=== PATIENT | female | born 1965 | race Hispanic/Latino ===

== ENCOUNTER → 2017-09-19 | Outpatient (CLI) | payer BC ==
[~2017-09-19] MED LIST: TERB250T4 PO
== END | disposition home or self-care (01) ==
LOC: SHCH 13:18
PROVIDERS: ATTEND Internal Medicine Cardiovascular Disease
DX: R55 Syncope and collapse (principal)
CPT/HCPCS: 93306

== ENCOUNTER 2018-04-21 17:28 | Observation (INO) | payer BC ==
[~2018-04-21] VITALS: Ht 177.8 cm; Wt 81.6 kg
[2018-04-21 18:38] LABS: BASOPHILS % (AUTO) 0.2 % (0.0-5.0); EOSINOPHILS % (AUTO) 0.4 % (0.0-8.0); HEMATOCRIT 43.5 % (36-48); LYMPHOCYTES % (AUTO) 16.6 % (21.0-51.0); MEAN CORPUSCULAR HEMOGLOBIN 30.5 pg (27.0-33.0); MEAN CORPUSCULAR HGB CONC 33.2 g/dL (32.0-36.0); MEAN CORPUSCULAR VOLUME 91.9 fL (79-99); MONOCYTES % (AUTO) 5.5 % (3.0-13.0); NEUTROPHILS % (AUTO) 77.3 % (40.0-77.0); NUCLEATED RED BLOOD CELLS 0.1 % (0.0-0.19); PLATELET COUNT (AUTO) 196 K/uL (130-400); RED BLOOD CELL COUNT(AUTO) 4.73 MIL/uL (4.00-5.50); WHITE BLOOD COUNT (AUTO) 14.9 K/uL (4.8-10.8)
[2018-04-21 18:50] LABS: ALBUMIN 3.4 g/dL (3.5-5.0); BILIRUBIN,DIRECT 0.1 mg/dL (0.0-0.3); BILIRUBIN,TOTAL 0.6 mg/dL (0.2-1.0)
[2018-04-21 19:02] LABS: B-TYPE NATRIURETIC PEPTIDE 20 pg/mL (0-100)
[2018-04-21] MEDS ORDERED: MIDO2.5T PO (19:20)
[2018-04-21] MEDS ORDERED: ONDA4TAB4 PO (19:20)
[2018-04-21] MEDS ORDERED: TYL3 PO (19:20)
[2018-04-21] MEDS ORDERED: PANT40TA25 PO (19:20)
[2018-04-21] MEDS ORDERED: VITA1CAP85 PO (19:20)
[2018-04-21] MEDS ORDERED: TOPI25CA13 PO (19:20)
[2018-04-21] MEDS ORDERED: FERR325T22 PO (19:20)
[2018-04-21] MEDS ORDERED: CHOL100053 PO (19:20)
[2018-04-21] MEDS: SODIUM CHLORIDE 0.9% 1000ML 1,000 ML IV SCH (19:22)
[2018-04-21] MEDS ORDERED: DIPHENHYDRAMINE HCL 25 MG CAPSULE PO PRN (19:30)
[2018-04-21] MEDS ORDERED: CEFTRIAXONE SODIUM 2 GM VIAL IVP SCH (19:30)
[2018-04-21] MEDS ORDERED: LACTULOSE 20 GM/30 ML UDCUP PO PRN (19:30)
[2018-04-21] MEDS ORDERED: LIDOCAINE HCL-MPF 1% 2ML VIAL IVP PRN (19:30)
[2018-04-21] MEDS ORDERED: PROCHLORPERAZINE EDISYLATE 10 MG/2 ML VIAL IV PRN (19:30)
[2018-04-21] MEDS ORDERED: MAG HYDROX/AL HYDROX/SIMETH ES 30 ML SUSP UDCUP PO PRN (19:30)
[2018-04-21] MEDS ORDERED: MORPHINE SULFATE 2 MG/ML 1ML SYG IV PRN (19:30)
[2018-04-21] MEDS ORDERED: ACETAMINOPHEN 325 MG TAB PO PRN ×2 (19:30)
[2018-04-21] MEDS ORDERED: DiphenhydrAMINE HCL 50 MG/ML VIAL IV PRN (19:30)
[2018-04-21] MEDS ORDERED: ACETAMINOPHEN-CODEINE 300/30MG TAB PO PRN ×2 (19:30)
[2018-04-21] MEDS ORDERED: POTASSIUM CHLORIDE 20MEQ/100ML 100 ML IV PRN (19:30)
[2018-04-21 19:46] LABS: AMYLASE 72 U/L (25-115); LIPASE 511 U/L (114-286)
[2018-04-21] MEDS ORDERED: PROCHLORPERAZINE EDISYLATE 10 MG/2 ML VIAL ONE (19:54)
[2018-04-21] MEDS ORDERED: MORPHINE SULFATE 4 MG/1ML SYG ONE (19:55)
[2018-04-21 20:23] LABS: CREATININE 0.9 mg/dL (0.5-1.5); POTASSIUM 4.6 mmol/L (3.5-5.1)
[2018-04-21 21:00] LABS: APPEARANCE,URINE CLOUDY (CLEAR); COLOR,URINE YELLOW (YELLOW); GLUCOSE, URINE (UA) NEGATIVE (NEGATIVE); PROTEIN,URINE TRACE (NEGATIVE)
[2018-04-21 21:01] LABS: BILIRUBIN,URINE SMALL (NEGATIVE); KETONES,URINE NEGATIVE (NEGATIVE); LEUKOCYTE ESTERASE ,URINE SMALL (NEGATIVE); NITRATE,URINE NEGATIVE (NEGATIVE); OCCULT BLOOD,URINE NEGATIVE (NEGATIVE)
[2018-04-21 21:02] LABS: BACTERIA,URINE Few /HPF (None Seen); CALCIUM OXALATE CRYSTALS,UR Many /LPF (None Seen); RBC,URINE None Seen /HPF (0-1); SQUAMOUS EPITHELIAL CELL,UR 0-2 /HPF (0-2); WBC,URINE 26-50 /HPF (0-1)
[2018-04-21] MEDS ORDERED: CEFTRIAXONE SODIUM 1 GM ONE (21:40)
[2018-04-21] MEDS ORDERED: SODIUM CHLORIDE 0.9% 1000ML 1,000 ML IV ONE (21:40)
[2018-04-21 22:50] VITALS: BP 107/64
[2018-04-22] MEDS: MORPHINE SULFATE 4 MG/1ML SYG IV PRN ×3 (00:14→11:01)
[2018-04-22] MEDS: SODIUM CHLORIDE 0.9% 1000ML 1,000 ML IV SCH ×3 (03:22→10:20)
[2018-04-22 04:00] VITALS: BP 107/61
[2018-04-22 04:44] LABS: HEMATOCRIT 38.4 % (36-48); MEAN CORPUSCULAR VOLUME 91.5 fL (79-99); NUCLEATED RED BLOOD CELLS 0.1 % (0.0-0.19); PLATELET COUNT (AUTO) 224 K/uL (130-400); RED CELL DISTRIBUTION WIDTH 13.8 % (11.0-15.5)
[2018-04-22 05:09] LABS: BILIRUBIN,DIRECT 0.1 mg/dL (0.0-0.3); BILIRUBIN,TOTAL 0.3 mg/dL (0.2-1.0); CREATININE 0.8 mg/dL (0.5-1.5); POTASSIUM 3.7 mmol/L (3.5-5.1)
[2018-04-22] MEDS ORDERED: PHARMACY COMMUNICATION MISC SCH ×2 (07:15→09:30)
[2018-04-22 07:40] VITALS: BP 98/58
[2018-04-22] MEDS ORDERED: FAMOTIDINE/PF 20 MG/2 ML VIAL IV SCH (09:00)
[2018-04-22] MEDS ORDERED: MAG HYDROX/AL HYDROX/SIMETH 30 ML, LIDOCAINE HCL 2% VISCOUS 30 ML, DIPHENHYDRAMINE HCL ... PO SCH ×3 (10:00)
[2018-04-22 12:02] VITALS: BP 101/62
[2018-04-22] MEDS ORDERED: PANTOPRAZOLE SODIUM 40 MG TABLET.DR PO SCH (14:30)
[2018-04-22] MEDS ORDERED: AMOXICILLIN/POTASSIUM CLAV 500-125 TABLET PO SCH (14:30)
[2018-04-22] MEDS ORDERED: AMOX-426 PO (14:36)
[2018-04-22] MEDS ORDERED: MELOXICAM 7.5 MG TABLET PO PRN (14:45)
[2018-04-22] MEDS ORDERED: MAGNESIUM HYDROXIDE 30 ML/UDCUP PO PRN (14:45)
[2018-04-22 16:00] VITALS: BP 104/72
== END 2018-04-22 18:55 | disposition home or self-care (01) ==
LOC: EDH 17:28 → 3BH 17:37 → 3DH 18:03
PROVIDERS: ADMIT Internal Medicine; ATTEND Internal Medicine
DX: R10.11 Right upper quadrant pain (principal); D50.9 Iron deficiency anemia, unspecified; E53.8 Deficiency of other specified B group vitamins; E55.9 Vitamin D deficiency, unspecified; F32.9 Major depressive disorder, single episode, unspecified; I95.1 Orthostatic hypotension; J44.9 Chronic obstructive pulmonary disease, unspecified; M85.80 Other specified disorders of bone density and structure, unspecified site; Z82.0 Family history of epilepsy and other diseases of the nervous system; Z82.3 Family history of stroke; Z82.49 Family history of ischemic heart disease and other diseases of the circulatory system; Z82.5 Family history of asthma and other chronic lower respiratory diseases; Z83.3 Family history of diabetes mellitus; Z90.49 Acquired absence of other specified parts of digestive tract; Z90.710 Acquired absence of both cervix and uterus; Z98.84 Bariatric surgery status
CPT/HCPCS: 36415 ×2; 74018; 74176; 74181; 80048 ×2; 80076 ×2; 81001; 82150; 83690; 83880; 85025; 85027; 87088; 96374; 96375; 96376; 99285; A4218; G0378 ×25; J0696; J0780 ×2; J2270 ×4; J3490; J7030 ×2

== ENCOUNTER → 2018-04-30 | Outpatient (CLI) | payer BC ==
[~2018-04-30] MED LIST changes: +AMOX-426 PO; +CHOL100053 PO; +FERR325T22 PO; +MIDO2.5T PO; +PANT40TA25 PO; -TERB250T4 PO; +VITA1CAP85 PO
== END | disposition home or self-care (01) ==
LOC: RAH 12:10
PROVIDERS: ATTEND Internal Medicine
DX: R10.10 Upper abdominal pain, unspecified (principal); K59.00 Constipation, unspecified
CPT/HCPCS: 74018

== ENCOUNTER → 2020-09-11 | Outpatient (CLI) | payer BC ==
[~2020-09-11] MED LIST changes: -PANT40TA25 PO; +PANT40TA54 PO
== END | disposition home or self-care (01) ==
LOC: RAH 13:51
PROVIDERS: ATTEND Internal Medicine
DX: E04.1 Nontoxic single thyroid nodule (principal)
CPT/HCPCS: 76536

== ENCOUNTER → 2021-03-21 | Outpatient (CLI) | payer BC | END | disposition home or self-care (01) | LOC: RAH 10:58 | PROVIDERS: ATTEND Internal Medicine Endocrinology, Diabetes & Metabolism | DX: E04.2 Nontoxic multinodular goiter (principal) | CPT/HCPCS: 76536 ==

== ENCOUNTER → 2022-06-17 | Outpatient (CLI) | payer OTHER | END | disposition home or self-care (01) | LOC: RAH 09:04 | PROVIDERS: ATTEND Family Medicine | DX: M75.112 Incomplete rotator cuff tear or rupture of left shoulder, not specified as traumatic (principal); M75.40 Impingement syndrome of unspecified shoulder; M75.122 Complete rotator cuff tear or rupture of left shoulder, not specified as traumatic; M75.42 Impingement syndrome of left shoulder | CPT/HCPCS: 73221 ==

== ENCOUNTER → 2023-02-03 | Outpatient (CLI) | payer OTHER ==
[~2023-02-03] MED LIST changes: +ERGO500093 PO; +HYDR-4060 PO; +SEMA0.258 SQ; +VITAMIN B12 IM
== END | disposition home or self-care (01) ==
LOC: RAH 08:03
PROVIDERS: ATTEND Internal Medicine
DX: K76.0 Fatty (change of) liver, not elsewhere classified (principal); R94.5 Abnormal results of liver function studies; N28.1 Cyst of kidney, acquired; Z90.49 Acquired absence of other specified parts of digestive tract
CPT/HCPCS: 76705

== ENCOUNTER 2023-02-07 08:40 | Day surgery (SDC) | payer OTHER ==
[2023-02-05 14:54] LABS: BASOPHILS % (AUTO) 1.2 % (0.0-5.0); EOSINOPHILS % (AUTO) 1.3 % (0.0-8.0); HEMATOCRIT 38.4 % (36-48); LYMPHOCYTES % (AUTO) 56.3 % (21.0-51.0); MEAN CORPUSCULAR HEMOGLOBIN 27.3 pg (27.0-33.0); MEAN CORPUSCULAR HGB CONC 31.5 g/dL (32.0-36.0); MEAN CORPUSCULAR VOLUME 86.5 fL (79-99); MONOCYTES % (AUTO) 6.8 % (3.0-13.0); NEUTROPHILS % (AUTO) 34.2 % (40.0-77.0); PLATELET COUNT (AUTO) 279 K/uL (130-400); RED BLOOD CELL COUNT(AUTO) 4.44 MIL/uL (4.00-5.50); RED CELL DISTRIBUTION WIDTH 15.1 % (11.0-15.5); WHITE BLOOD COUNT (AUTO) 8.9 K/uL (4.8-10.8)
[2023-02-05 15:04] LABS: INR 0.97 (0.85-1.15); PROTHROMBIN TIME 11.3 SEC (9.6-11.6)
[2023-02-05 15:06] LABS: ALBUMIN 3.8 g/dL (3.5-5.0); CARBON DIOXIDE 28 mmol/L (21-32); CHLORIDE 104 mmol/L (101-111); CREATININE 0.8 mg/dL (0.5-1.5); GLOMERULAR FILTR. RATE CALC 85 mL/min (>90); GLUCOSE,RANDOM 86 mg/dL (70-105); PARTIAL THROMBOPLASTIN TIME 26.5 SEC (26.3-35.5); POTASSIUM 3.9 mmol/L (3.5-5.1); SODIUM SERUM 141 mmol/L (136-145); UREA NITROGEN, BLOOD 5 mg/dL (7-18)
[2023-02-05 15:07] LABS: CRP QUANTITATIVE < 2.00 mg/L (0.00-9.0)
[2023-02-05 15:27] VITALS: BP 121/59
[~2023-02-07] VITALS: Ht 167.6 cm; Wt 89.0 kg
[2023-02-07] VITALS (16 sets, daily range): BP systolic 104–144; BP diastolic 56–78
[~2023-02-07 08:40] MED LIST changes: -AMOX-426 PO; -CHOL100053 PO; -FERR325T22 PO; -HYDR-4060 PO; -MIDO2.5T PO; -PANT40TA54 PO; -VITA1CAP85 PO
[2023-02-07] MEDS ORDERED: CEFAZOLIN SODIUM 2 GM VIAL ONE (09:15)
[2023-02-07] MEDS ORDERED: 0.9%NACL 1000ML 1,000 ML IV ONE (09:15)
[2023-02-07] MEDS ORDERED: GLYCOPYRROLATE 1 MG/5 ML SYRINGE ONE (12:20)
[2023-02-07] MEDS ORDERED: SUCCINYLCHOLINE CHLORIDE 20 MG/ML 10 ML VIAL ONE (12:20)
[2023-02-07] MEDS ORDERED: LIDOCAINE PF 100MG/5ML (2%) SYRINGE 5ML ONE (12:20)
[2023-02-07] MEDS ORDERED: FENTANYL CITRATE PF 50 MCG/1 ML 2ML VIAL ONE (12:20)
[2023-02-07] MEDS ORDERED: ONDANSETRON 4MG INJ ONE (12:20)
[2023-02-07] MEDS ORDERED: DEXAMETHASONE SOD PHOSPHATE 10MG/ML 1ML VIAL ONE ×2 (12:20→15:49)
[2023-02-07] MEDS ORDERED: MIDAZOLAM HCL 1 MG/ML 2ML VIAL ONE (12:21)
[2023-02-07] MEDS ORDERED: PROPOFOL 10 MG/ML 20ML VIAL IV ONE (12:21)
[2023-02-07] MEDS ORDERED: NEOSTIGMINE 5MG/5ML SYR IV ONE (12:21)
[2023-02-07] MEDS ORDERED: ROCURONIUM 10MG/1ML SYR 10 MG/ML ML ONE (12:21)
[2023-02-07] MEDS ORDERED: ROPIVACAINE 0.5% 5MG/ML 30ML IJ ONE (12:31)
[2023-02-07] MEDS ORDERED: EPINEPHRINE PF 1MG (1:1,000) 1 MG/ML AMP ONE (13:31)
[2023-02-07] MEDS ORDERED: EPHEDRINE SULFATE 50 MG/ML AMPULE ONE (14:05)
[2023-02-07] MEDS ORDERED: KETOROLAC 30MG VIAL (30MG/ML) ONE (15:49)
[2023-02-07] MEDS ORDERED: HYDR-4060 PO (16:08)
== END 2023-02-07 17:50 | disposition home or self-care (01) ==
LOC: DAH 08:40
PROVIDERS: ATTEND Student in an Organized Health Care Education/Training Program
DX: M75.42 Impingement syndrome of left shoulder (principal); Z20.822 Contact with and (suspected) exposure to COVID-19; M65.812 Other synovitis and tenosynovitis, left shoulder; M77.8 Other enthesopathies, not elsewhere classified; M25.712 Osteophyte, left shoulder; Z79.01 Long term (current) use of anticoagulants; Z79.899 Other long term (current) drug therapy; Z90.49 Acquired absence of other specified parts of digestive tract; Z98.890 Other specified postprocedural states
CPT/HCPCS: 82040; 80048; 85025; 85610; 85730; 84134; 86140; 87426; 81025; 36415; 29822; 64415; 82948 ×2; A4663; J7030 ×2; A4565; A4452; J3010; J3490 ×2; J1100 ×2; J2710; J0330; J2001; J0171; J2250; J2704; J2405; J1885; J2795; J0690; A6223; C1769; A4215; A4223; A4222; A4221; A4600

== ENCOUNTER → 2024-08-23 | Outpatient (CLI) | payer OTHER ==
[~2024-08-23] MED LIST changes: +HYDR-4060 PO
--- NOTE | 2024-08-23 13:00 | HMCIMG ---
CHEST 2VWS HISTORY: Preop COMPARISON: None FINDINGS: Frontal and lateral projections of the chest were obtained. There is no acute pulmonary infiltrates or failure. The heart is not enlarged. No evidence of aortic calcification is seen. Degenerative changes are seen of the thoracolumbar spine. IMPRESSION: 1. No acute pulmonary infiltrates.
== END | disposition home or self-care (01) ==
LOC: RAH 10:40
PROVIDERS: ATTEND Internal Medicine
DX: Z01.811 Encounter for preprocedural respiratory examination (principal); M47.815 Spondylosis without myelopathy or radiculopathy, thoracolumbar region
CPT/HCPCS: 71046

== ENCOUNTER 2024-09-03 06:03 | Observation (INO) | payer OTHER ==
[2024-09-01 12:04] LABS: BASOPHILS # (AUTO) 0.14 K/uL (0.00-0.20); BASOPHILS % (AUTO) 1.4 % (0.0-5.0); EOSINOPHILS # (AUTO) 0.13 K/uL (0.00-0.70); EOSINOPHILS % (AUTO) 1.3 % (0.0-8.0); HEMATOCRIT 38.5 % (36-48); IMMATURE GRANULOCYTE ABSOLUTE 0.02 K/uL (0-1); LYMPHOCYTES # (AUTO) 5.4 K/uL (1.0-4.8); LYMPHOCYTES % (AUTO) 53.5 % (21.0-51.0); MEAN CORPUSCULAR HEMOGLOBIN 28.8 pg (27.0-33.0); MEAN CORPUSCULAR HGB CONC 31.9 g/dL (32.0-36.0); MEAN CORPUSCULAR VOLUME 90.2 fL (79-99); MONOCYTES # (AUTO) 0.6 K/uL (0.1-1.0); MONOCYTES % (AUTO) 5.4 % (3.0-13.0); NEUTROPHILS # (AUTO) 3.9 K/uL (1.8-7.7); NEUTROPHILS % (AUTO) 38.2 % (40.0-77.0); PLATELET COUNT (AUTO) 230 K/uL (130-400); RED BLOOD CELL COUNT(AUTO) 4.27 MIL/uL (4.00-5.50); RED CELL DISTRIBUTION WIDTH 14.7 % (11.0-15.5); WHITE BLOOD COUNT (AUTO) 10.1 K/uL (4.8-10.8)
[2024-09-01 12:19] LABS: CREATININE 0.8 mg/dL (0.5-1.0); POTASSIUM 4.1 mmol/L (3.5-5.1)
[2024-09-01 12:23] LABS: INR 1.01 (0.85-1.15); PROTHROMBIN TIME 11.3 SEC (9.6-11.6)
[2024-09-01 12:24] LABS: PARTIAL THROMBOPLASTIN TIME 26.9 SEC (26.3-35.5)
[2024-09-01 12:35] VITALS: BP 99/53; PULSE 72; RESP 13; TEMP 97.9
--- NOTE | 2024-09-02 09:14 | NUR ---
REPORT REPORTED TO DR BURTON PT STILL BEING MONITORED BY DR PARKINSON WITH HOLTER MONITOR FOR SYNCOPE, BUT DOES HAVE CARDIAC CLEARANCE. OK TO PROCEED
[2024-09-03] VITALS (37 sets, daily range): BP systolic 91–121; BP diastolic 45–73; PULSE 50–95; RESP 15–18; TEMP 97.3–98; O2SAT 100
[~2024-09-03] VITALS: Ht 165.1 cm; Wt 61.2 kg
[2024-09-03] MEDS ORDERED: ketaMINE 50MG/ML SYRINGE 50 MG/ML DISP.SYRIN ONE (06:43)
[2024-09-03] MEDS ORDERED: ROPivacaine 0.5% 5MG/ML 30ML ONE (06:43)
[2024-09-03] MEDS ORDERED: proPOFol 10 MG/ML 20ML VIAL IV ONE (06:44)
[2024-09-03] MEDS ORDERED: rocuRONium bROMide 10MG/1ML 5ML VL ONE (06:44)
[2024-09-03] MEDS ORDERED: LIDOCAINE PF 100MG/5ML (2%) SYRINGE 5ML ONE (06:44)
[2024-09-03] MEDS ORDERED: FENTanyl CITRate PF 50 MCG/1 ML 2ML VIAL ONE (06:45)
[2024-09-03] MEDS: ceFAZolin SODIUM 2 GM VIAL ONE (06:51)
[2024-09-03] MEDS: LACTATED RINGERS 1000ML 1,000 ML IV ONE (06:51)
[2024-09-03] MEDS ORDERED: EPINEPHrine PF 1MG (1:1,000) 1 MG/ML AMP ONE (07:02)
[2024-09-03] MEDS ORDERED: ondanSETRON 4MG INJ ONE (07:41)
[2024-09-03] MEDS ORDERED: dexaMETHasone SOD PHOSPHATE 10MG/ML 1ML VIAL ONE (07:41)
[2024-09-03] MEDS: ceFAZolin SODIUM 2 GM VIAL IVPB ONE (07:50)
[2024-09-03] MEDS ORDERED: NEOSTIGMINE METHYLSULFATE 1MG/ML IV ONE (07:58)
[2024-09-03] MEDS ORDERED: GLYCOPYRROLATE 0.2 MG/ML 5 ML VIAL ONE (07:58)
--- NOTE | 2024-09-03 08:10 | EKG ---
[facility] Test Date: 2024-09-03 Test Time: 06:40:06 Pat Name: VINCENT CURTIS Department: [facility] Room: 405 Gender: F Systems Auditor: [id number] : 1965 Requested By: ANNA WALSH Order Number: [id number] Reading MD: Johana Mehta Measurements Intervals [place] Rate: 60 P: 46 OH: 158 QRS: -8 QRSD: 77 T: 29 QT: 430 QTc: 432 Interpretive Statements Sinus rhythm No previous ECG available for comparison Electronically Signed On 09-06-2024 15:52:12 TACK DRILLER by Johana Mehta Please click the below link to view image of tracing.
[2024-09-03] MEDS ORDERED: HYDR-4060 PO (10:25)
[2024-09-03] MEDS ORDERED: CYCL5TAB3 PO (10:25)
[2024-09-03] MEDS: MEPERIDINE-PF 50 MG/ML SYG ONE (10:43)
[2024-09-03] MEDS: ondanSETRON 4MG INJ IVP ONE (11:44)
--- NOTE | 2024-09-03 12:17 | NUR ---
RIGHT HAND UPON ARRIVAL TO DAY PATIENT RIGHT HAD/WRIST HAD A 20G SALINE LOCKED WITH A STOP COCK. RIGHT HAND NOTED REDNESS AND DISCOLORATION TO THE SURROUNDING AREA. 20G REMOVED AT 1152 WITH A STERILE 2X2 GAUZE FOLLOWED BY A 2X2 TEGADERM.
--- NOTE | 2024-09-03 12:30 | NUR ---
ASSESSED PATIENT DID NOT WANT TO GO HOME WANTED TO SLEEP OFF THE ANESTHESIA. ANNA GILES ASSESSED PATIENT. PER ANNA IF PATIENT STILL DID NOT WANT TO GO HOME TO CALL THE HOSPITALIST CONFERENCE DIRECTOR FOR ROOM.
[2024-09-03] MEDS ORDERED: ondanSETRON 4MG TABLET PO ONE (15:00)
--- NOTE | 2024-09-03 15:30 | NUR ---
DR. IVERSON CALLED BACK STATING DR. SCHUSTER USUALLY ADMITS HER OWN PATIENTS AND TO CALL HER TO ADMIT THE PATIENT AND HE WILL BE HAPPTY TO CONSULT IF NEEDED. DR. SCHUSTER WILL BE CALLED
[2024-09-03] MEDS: ondanSETRON ODT 4MG TAB SL ONE (15:32)
--- NOTE | 2024-09-03 16:05 | NUR ---
ORTHOSTATIC VITALS DR. SCHUSTER ORDERED ORTHOSTATIC VITALS. LAID PATIENT DOWN IN STRETCHER FROM WHEELCHAIR. LAYING DOWN BLOOD PRESSURE 130/72. WAITED FIVE MINUTES SAT PATIENT AT THE SIDE OF THE BED. SITTING 116/61. WAITED FOUR MINUTES TOOK BLOOD PRESSURE WITH PATIENT STANDING 119/65. GOPAL ARREDONDO AND SPOUSE ASSISTED WITH HOLDING PATIENT UP IN BED. PATIENT AWAKE AND ALERT IN STRETCHER BOTH SIDE RAILS UP.
[2024-09-03] MEDS ORDERED: CALCIUM CARB 500MG PO PRN (16:30)
[2024-09-03] MEDS: 0.9%NACL 1000ML 1,000 ML IV SCH ×2 (16:30→22:00)
[2024-09-03] MEDS ORDERED: HYDROcodone/APAP 5/325 1 TAB TABLET PO PRN ×3 (16:30)
[2024-09-03] MEDS ORDERED: PoTASSium chl 10% ELIXIR 20MEQ 20 MEQ/15 ML UDCUP PO PRN (16:30)
[2024-09-03] MEDS ORDERED: PoTASSium chloRIDE 20MEQ/100ML 100 ML IV PRN (16:30)
[2024-09-03] MEDS ORDERED: FE FUMARATE/FA/MV, MIN COMB#15 1 TAB PO PRN (16:30)
[2024-09-03] MEDS ORDERED: ondanSETRON 4MG INJ IVP PRN (16:30)
[2024-09-03] MEDS ORDERED: CYCLOBENZAPRINE HCL 10 MG TABLET PO PRN (16:30)
[2024-09-03] MEDS ORDERED: ketOROlac 15MG/ML VIAL (15MG/ML) IV PRN (16:30)
[2024-09-03] MEDS ORDERED: DiphenhydrAMINE HCL 50 MG/ML VIAL IVP PRN (16:30)
[2024-09-03] MEDS ORDERED: PoTASSium chloRIDE 20MEQ ER 20 MEQ ERTAB PO PRN (16:30)
--- NOTE | 2024-09-03 17:55 | NUR ---
REPORT GIVEN TO NURSE ON 4TH FLOOR ROOM 405
[2024-09-03] MEDS: ketOROlac 15MG/ML VIAL (15MG/ML) IV SCH (17:58)
--- NOTE | 2024-09-03 19:22 | OP ---
Operative Note: DATE OF PROCEDURE: 09/03/24 SURGEON: MARIA EUGENIA SCHUSTER MD QUALITATIVE FIELD COORDINATOR: Quique Ferraro ANESTHESIA: General and interscalene block ANESTHESIOLOGIST/SCIENCE TECHNICIANS: Liset Pittman PREOPERATIVE DIAGNOSIS: Left shoulder pain with possible labral tear POSTOPERATIVE DIAGNOSIS: Left shoulder instability PROCEDURE: Left shoulder arthroscopic anterior capsulorrhaphy and debridement ESTIMATED BLOOD LOSS: 10 cc FINDINGS: Once anesthetized and positioned in beach chair positioning we noted that the patient had anterior subluxation of her shoulder and could be reduced posteriorly. On insertion of the arthroscope we noted there to be intact labrum with intact biceps anchor a and no signs of rotator cuff tear around long head of the biceps anteriorly. There was some frayed tissue in the posterior aspect of the labrum that was debrided using the shaver device. There was minimal synovitis over the long head of the biceps near its insertion site. This was debrided using cautery device. The remainder of the rotator cuff was visualized and seen to be intact. We then performed an anterior capsulorrhaphy along the glenoid the 9, 10, and 11 o'clock position. The humeral head was noted to have some diffuse grade two chondromalacia with the glenoid showing diffuse grade 2 and a small grade 3 lesion. INDICATIONS: 59-year-old female with a history of left shoulder pain. She had a history of a proximally two years ago developing some adhesive capsulitis and undergoing arthroscopic debridement at that time. In the last few months she developed a sharp pain posteriorly in the shoulder with reaching away from the body. MRI was negative for any findings. We discussed undergoing diagnostic arthroscopy with treatment of any noted pathology at that time. After discussion of the risk, benefits, and alternatives, the patient voluntarily agreed to undergo the aforementioned procedure. DESCRIPTION OF PROCEDURE: Patient was properly identified in the preoperative holding area. Surgical site marking was verified and surgery consent reviewed. The patient was then taken to the operating room and placed in supine position on the OR table. After induction of general anesthesia, preoperative antibiotics were given, all bony prominences were well-padded as the patient was transitioned into beach chair position. The left upper extremity was then prepped and draped in usual sterile fashion. Surgical time out was done verifying correct surgery, side, site, and location to be performed. At the beginning in the procedure, while palpating anatomic landmarks we noted that the shoulder appeared anterior subluxated and was able to be reduced posteriorly. We then began the procedure by using an 18-gauge spinal needle to inject the shoulder joint with normal saline to distend the joint capsule. A posterior lateral portal was established using 11 blade and we inserted our arthroscope through this portal. We established an anterior portal using needle localization under direct visualization and placed a working cannula through this portal. We then performed a diagnostic arthroscopy with the aforementioned findings. Using an electrocautery device, we debrided some of the synovitis that was overlying the long head of the biceps. We then evaluated the redundant anterior capsule and labral tissue. We debrided some of the posterior labral tissue that was frayed using a shaver device. We then elected to use a FiberTak sutures in the anterior edge of the glenoid at the 9, 10, and 11 o'clock position to perform a capsulorrhaphy and grabbing the anterior redundant capsule in the labrum with a bird beak suture Passer. The sutures were then tied together creating an anterior bumper room the edge of the glenoid with the capsule and labrum. We then removed as much of the arthroscopic fluid as possible and removed the arthroscopic instruments and camera. We expressed some the remaining fluid from the surrounding soft tissues. 3-0 nylon was then used to close the skin portals. Sterile soft dressing was applied. Patient was then placed into a shoulder immobilizer, awakened from anesthesia, and taken the recovery room in stable condition. MARIA EUGENIA SCHUSTER MD Sep 03, 2024 19:22
[2024-09-03 19:44] LABS: BASOPHILS # (AUTO) 0.04 K/uL (0.00-0.20); BASOPHILS % (AUTO) 0.2 % (0.0-5.0); IMMATURE GRANULOCYTE ABSOLUTE 0.04 K/uL (0-1); LYMPHOCYTES # (AUTO) 3.3 K/uL (1.0-4.8); MEAN CORPUSCULAR HEMOGLOBIN 28.8 pg (27.0-33.0); MEAN CORPUSCULAR HGB CONC 32.4 g/dL (32.0-36.0); MEAN CORPUSCULAR VOLUME 88.9 fL (79-99); MONOCYTES # (AUTO) 0.6 K/uL (0.1-1.0); MONOCYTES % (AUTO) 3.4 % (3.0-13.0); NEUTROPHILS # (AUTO) 12.4 K/uL (1.8-7.7); NEUTROPHILS % (AUTO) 76.2 % (40.0-77.0); PLATELET COUNT (AUTO) 206 K/uL (130-400); RED BLOOD CELL COUNT(AUTO) 3.71 MIL/uL (4.00-5.50); RED CELL DISTRIBUTION WIDTH 14.8 % (11.0-15.5); WHITE BLOOD COUNT (AUTO) 16.3 K/uL (4.8-10.8)
[2024-09-03 19:53] LABS: CREATININE 0.9 mg/dL (0.5-1.0); POTASSIUM 4.2 mmol/L (3.5-5.1)
[2024-09-03 20:00] LABS: BILIRUBIN,TOTAL 0.5 mg/dL (0.2-1.0); MAGNESIUM 1.8 mg/dL (1.80-2.40)
--- NOTE | 2024-09-03 21:11 | CONS ---
[facility] CONSULTATION NOTE Date of Service: Sep 03, 2024 Reason for Consultation: Medical Management, Dizziness post anesthesia Requesting Physician: [ Dr. Alarcon] Outpatient PCP: Dr. Han HISTORY OF PRESENT ILLNESS: 59-year-old female with history of orthostasis, and multiple previous surgeries, history of hyperparathyroidism, who underwent left shoulder arthroscopic anterior capsulorrhaphy and debridement by Dr. Alarcon earlier today for management of left shoulder pain with possible labral tear. Patient states that the surgery ended close to 10:30 a.m. today and plan was for patient to be discharged. She reports that post surgery, she had numbness and loss of motor function involving the left upper extremity (left hand, left forearm, and left arm). She did have left interscalene nerve block by anesthesia for the procedure. She also reports that as she was getting up from the bed, she had significant gait instability, instability involving the trunk and she felt like she might fall. She reports that she was not feeling well postprocedure and and did not want to go home due to risk of fall. I saw this patient close to 6:45 p.m. after hospitalist service was consulted for further management. Patient states that her symptoms are improving and she feels less unstable with walking. She denies any headache, chest pain, shortness of breath. Denies any previous history of stroke. She is worried about how long the nerve block will last for. She has been followed by Dr. Barton as outpatient for further evaluation of syncope. She had a 2D echocardiogram done as outpatient which showed LVEF of 60-65% with mild mitral regurgitation and mild tricuspid regurgitation with small pericardial effusion. She had a event monitor placed which showed no significant abnormal heart rhythms or no atrial fibrillation either. Patient does report having history of orthostatic hypotension which has been managed conservatively. Currently denies being on outpatient medications. REVIEW OF SYSTEMS CONSTITUTIONAL: Denies fevers, chills, or night sweats. No unintentional weight loss reported. NEUROLOGICAL: Loss of sensation and motor strength involving the left hand, left forearm, and left arm, but did having gait instability when walking earlier in the morning today ENT: No hearing loss, otalgia, otorrhea, rhinitis, rhinorrhea, hoarseness, or sore throat. CARDIOVASCULAR: Denies any exertional angina, dyspnea on exertion, orthopnea, paroxysmal nocturnal dyspnea, palpitations, life-threatening arrhythmias, claudication. PULMONARY: Denies any shortness of breath, cough, phlegm/sputum, hemoptysis, pleuritic chest pain. SLEEP: Denies morning headaches, daytime somnolence or napping. Denies difficulty falling asleep, staying asleep, waking from sleep. Denies knowledge of snoring. GASTROINTESTINAL: Denies any type of dysphagia to either liquids or solids. Denies nausea, vomiting, pyrosis, early satiety, abdominal pain, diarrhea, constipation, or changes in stool consistency or caliber. Denies coffee-ground emesis, hematemesis, hematochezia, or melanotic stools. GENITOURINARY: Denies frequency, urgency, nocturia, hematuria or incontinence (Storage/Irritative symptoms.) Low urinary stream, straining to void, urinary intermittency or hesitancy, splitting of the voiding stream, terminal dribbling. ENDOCRINOLOGIC: Denies polyuria, polydipsia, polyphagia or heat/cold intolerances. HEMATOLOGIC: Denies thrombophilia/previous clots, or coagulopathy/bleeding disorders. ONCOLOGIC: Denies personal history of malignancy. DERMATOLOGIC: Denies rashes or pruritus. PSYCHIATRIC: Denies any suicidal or homicidal ideation. Denies hallucinations. 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 Patient has 5/5 strength involving the right upper extremity and bilateral lower extremity. Patient has loss of sensation involving the left hand, forearm, arm and 0/5 strength invo lving the left upper extremity, patient is wearing a sling and dressings appear clean/dry/intact HEENT: Face is symmetric. Pupils are equal and reactive. Extraocular movements are intact. NECK: Supple. No JVD. No thyromegaly. No submental, submandibular, pre- /postauricular, occipital or supraclavicular lymphadenopathy. CHEST: Normal chest expansion. No Telemetry. LUNGS: Absence of any rales, rhonchi or any wheezing. CARDIOVASCULAR: Regular. S1 and S2 normal. No appreciable rubs, murmurs or gallops. ABDOMEN: Soft, nontender, and nondistended. There is no rebound, voluntary guarding, or rigidity. : Deferred. No Oneal. EXTREMITIES: Non-edematous and not cyanotic. No clubbing. Good capillary refill. SKIN: No skin breakdown. Vital Sign (Last 24 Hours) 09/03/24 09/03/24 09/03/24 17:34 18:00 19:15 Temp 97.5 Pulse 72 Resp 16 B/P (MAP) 107/62 Pulse Ox 100 O2 Delivery Room Air O2 Flow Rate 0.0 FiO2 21 LABS: Laboratory: Test 09/03/24 19:39 09/03/24 16:19 Range/Units White Blood Count 16.3 H 4.8-10.8 K/uL Red Blood Count 3.71 L 4.00-5.50 MIL/uL Hemoglobin 10.7 L 12.0-16.0 g/dL Hematocrit 33.0 L 36-48 % Mean Corpuscular Volume 88.9 79-99 fL Mean Corpuscular Hemoglobin 28.8 27.0-33.0 pg Mean Corpuscular Hemoglobin Concent 32.4 32.0-36.0 g/dL Red Cell Distribution Width 14.8 11.0-15.5 % Platelet Count 206 130-400 K/uL Mean Platelet Volume 11.4 H 7.5-10.5 fL Immature Granulocyte % (Auto) 0.2 0-1 % Neutrophils (%) (Auto) 76.2 40.0-77.0 % Lymphocytes (%) (Auto) 20.0 L 21.0-51.0 % Monocytes (%) (Auto) 3.4 3.0-13.0 % Eosinophils (%) (Auto) 0.0 0.0-8.0 % Basophils (%) (Auto) 0.2 0.0-5.0 % Neutrophils # (Auto) 12.4 H 1.8-7.7 K/uL Lymphocytes # (Auto) 3.3 1.0-4.8 K/uL Monocytes # (Auto) 0.6 0.1-1.0 K/uL Eosinophils # (Auto) 0.00 0.00-0.70 K/uL Basophils # (Auto) 0.04 0.00-0.20 K/uL Absolute Immature Granulocyte (auto 0.04 0-1 K/uL Nucleated Red Blood Cells 0.0 0.0-0.19 % Sodium Level 137 136-145 mmol/L Potassium Level 4.2 3.5-5.1 mmol/L Chloride Level 106 101-111 mmol/L Carbon Dioxide Level 25 21-32 mmol/L Blood Urea Nitrogen 9 7-18 mg/dL Creatinine 0.9 0.5-1.0 mg/dL Glomerular Filtration Rate Calc 73 >90 mL/min Random Glucose 248 H 70-105 mg/dL Total Calcium 8.2 L 8.5-10.1 mg/dL Magnesium Level 1.80 1.80-2.40 mg/dL Total Bilirubin 0.5 0.2-1.0 mg/dL Aspartate Amino Transf (AST/SGOT) 14 10-37 U/L Alanine Aminotransferase (ALT/SGPT) 17 12-78 U/L Alkaline Phosphatase 93 50-136 U/L Total Creatine Kinase 88 21-232 U/L Troponin I High Sensitivity 5.6 4-50 ng/L B-Type Natriuretic Peptide 35 0-100 pg/mL Total Protein 6.0 6.0-8.3 g/dL Albumin 3.0 L 3.5-5.0 g/dL Whole Blood Glucose 115 H 70-110 MG/DL DIAGNOSTICS / RADIOLOGY: SERVICE 1127 REASON: ENCOUNTER FOR OTHER PROCEDURAL EXAMINATION ORDERING PHYSICIAN: ZAKIYA HAN MD PROCEDURE: CXR2VW - CHEST 2VWS CHEST 2VWS HISTORY: Preop COMPARISON: None FINDINGS: Frontal and lateral projections of the chest were obtained. There is no acute pulmonary infiltrates or failure. The heart is not enlarged. No evidence of aortic calcification is seen. Degenerative changes are seen of the thoracolumbar spine. IMPRESSION: 1. No acute pulmonary infiltrates. DICTATED BY: BEA HALL MD DATE: 08/23/24 1257 ELECTRONICALLY SIGNED BY: BEA HALL MD DATE: 08/23/24 1300 ASSESSMENT: s/p left shoulder arthroscopic anterior capsulorrhaphy and debridement for left shoulder instability by Dr. Alarcon, 09/03/2024 Left upper extremity weakness and numbness secondary to left interscalene nerve block History of orthostatic hypotension, POA Gait instability, resolving, likely secondary to orthostasis, postanesthesia History of syncope being worked up as outpatient, POA History of paraganglioma status post resection, POA History of goiter, POA History of hyperparathyroidism, POA History of vitamin B12 deficiency, POA History of gastrojejunal ulcer, EGD 2017, POA History of sciatica, POA History of iron deficiency anemia, POA History of osteopenia, POA PLAN: Continue with admission in medical-surgical floor and we will keep this patient on telemetry to rule out any significant cardiac arrhythmias Continue with IV hydration with NS at 75 mL/hour We will check orthostatic vitals in a.m. if orthostatic vitals are positive, patient will benefit from midodrine I spoke with Dr. Alarcon as well as anesthesia about this patient, the effects of left interscalene nerve block in last from 12-24 hours and sometimes even up to 36 hours, we will reassess and hopefully by tomorrow, patient has improvement of sensation and strength to the left upper extremity Patient has history of orthostatic hypotension which may have been exacerbated postanesthesia contributing towards dizziness and gait instability. We will obtain a CT head without contrast to ensure there is no acute intracranial process. This was discussed with patient as well We will repeat labs, leukocytosis is expected as patient received dexamethasone 10 mg during anesthesia. We will follow up with with repeat labs in the a.m., monitor closely for signs of infection, we will obtain a urinalysis, chest x-ray Continue with rest of the home medications We will see how patient progresses in the next 24 hours, Dr. Han to resume care in the morning We will keep patient on Protonix next given history of gastrojejunal ulcer, and patient has been started on aspirin while inpatient Date of service: 09/03/2024 Plan of care was discussed with patient and family at bedside, CAMILA Colon MD, MD Sep 03, 2024 21:11
--- NOTE | 2024-09-03 21:19 | NUR ---
PER RN UNABLE TO BRING PT DOWN, NO AIDE AVAILABLE, CHARGE NURSE ATTENDING TO PTS, EXAM PENDING UNTIL ARRANGEMENTS ARE MADE
--- NOTE | 2024-09-03 22:25 | HMCIMG ---
CT HEAD/BRAIN W/O CONTRAST HISTORY: Dizziness COMPARISON: None TECHNIQUE: Multiple sequential axial images of the head were obtained from the base of the skull through vertex. Patient was not given contrast through intravenous route. FINDINGS: The ventricles and extraventricular CSF spaces are nondilated for patient's age. There is no midline shift, mass effect or herniation. No acute intracranial bleed is seen. Visualized portion of the paranasal sinuses are grossly within normal limits. IMPRESSION: 1. No acute intracranial bleed is seen. CT was performed with one or more following dose reduction techniques: automated exposure control, adjustment of the mA and kv according to patient's size, or use of a iterative reconstruction technique.
[2024-09-03] MEDS: ceFAZolin SODIUM 2 GM VIAL IVPB SCH (23:05)
[2024-09-03] MEDS: doCUSate SODIUM 100 MG CAP PO SCH (23:05)
[2024-09-04] VITALS: BP 93/54; PULSE 69; RESP 16; TEMP 97.9
[2024-09-04 04:00] VITALS: BP 97/54; PULSE 66; RESP 18; TEMP 98.4
[2024-09-04 05:28] LABS: BASOPHILS # (AUTO) 0.08 K/uL (0.00-0.20); BASOPHILS % (AUTO) 0.6 % (0.0-5.0); EOSINOPHILS # (AUTO) 0.06 K/uL (0.00-0.70); EOSINOPHILS % (AUTO) 0.5 % (0.0-8.0); HEMATOCRIT 29.3 % (36-48); IMMATURE GRANULOCYTE ABSOLUTE 0.05 K/uL (0-1); LYMPHOCYTES # (AUTO) 4.3 K/uL (1.0-4.8); LYMPHOCYTES % (AUTO) 34.2 % (21.0-51.0); MEAN CORPUSCULAR HEMOGLOBIN 29.4 pg (27.0-33.0); MEAN CORPUSCULAR HGB CONC 33.4 g/dL (32.0-36.0); MONOCYTES # (AUTO) 0.8 K/uL (0.1-1.0); MONOCYTES % (AUTO) 6.7 % (3.0-13.0); NEUTROPHILS # (AUTO) 7.2 K/uL (1.8-7.7); NEUTROPHILS % (AUTO) 57.6 % (40.0-77.0); PLATELET COUNT (AUTO) 191 K/uL (130-400); RED BLOOD CELL COUNT(AUTO) 3.33 MIL/uL (4.00-5.50); RED CELL DISTRIBUTION WIDTH 14.9 % (11.0-15.5); WHITE BLOOD COUNT (AUTO) 12.5 K/uL (4.8-10.8)
[2024-09-04 05:34] LABS: CREATININE 0.6 mg/dL (0.5-1.0); POTASSIUM 3.8 mmol/L (3.5-5.1)
[2024-09-04 05:47] LABS: APPEARANCE,URINE CLEAR (CLEAR); BILIRUBIN,URINE NEGATIVE (NEGATIVE); COLOR,URINE LIGHT-YELLOW (YELLOW); GLUCOSE, URINE (UA) TRACE mg/dL (NEGATIVE); KETONES,URINE 5 mg/dL (NEGATIVE); LEUKOCYTE ESTERASE ,URINE 250 Leu/uL (NEGATIVE); NITRATE,URINE NEGATIVE (NEGATIVE); OCCULT BLOOD,URINE NEGATIVE (NEGATIVE); PH,URINE 5.5 (5.0-8.0); PROTEIN,URINE NEGATIVE (NEGATIVE); UROBILINOGEN,URINE 0.2 mg/dL (0.2-1.0)
[2024-09-04 06:06] LABS: ADD UA MICROSCOPIC YES
[2024-09-04 06:07] LABS: BACTERIA,URINE None Seen /HPF (None Seen); SQUAMOUS EPITHELIAL CELL,UR Rare /HPF (0-2)
[2024-09-04] MEDS: ceFAZolin SODIUM 2 GM VIAL IVPB SCH (07:20)
[2024-09-04 08:00] VITALS: BP 89/52; PULSE 69; RESP 16; TEMP 98.6; O2SAT 98
--- NOTE | 2024-09-04 08:15 | HMCIMG ---
PORTABLE CHEST RADIOGRAPH INDICATION: Evaluate for ANY SIGNFICANT INFILTRATES COMPARISON: 08/23/2024 FINDINGS: Heart size is normal. The pulmonary vascularity and irvin appear normal. No abnormal pulmonary parenchymal opacity or consolidation identified. No significant pleural effusion noted. No pneumothorax detected. IMPRESSION: No radiographic evidence for any acute cardiopulmonary process.
--- NOTE | 2024-09-04 08:38 | PN ---
Subjective Review of Systems PROGRESS NOTE Date of Visit: Sep 04, 2024 Time of Visit: 08:38 Events since last encounter PATIENT FEELING BETTER THIS AM, LEFT HAND NUMBNESS RESOLVED Subjective NO NEW SYMPTOMS AND FEELS STRONGER AND ANXIOUS TO GO HOME General: No Fever, No Chills, No Night Sweats, No Fatigue, No Malaise, No Appetite, No Other HEENT: No Head Aches, No Visual Changes, No Eye Pain, No Ear Pain, No Dysphasia, No Sinus Congestion, No Post Nasal Drip, No Sore Throat, No Other Pulmonary: No Dyspnea, No Cough, No Pleuritic Chest Pain, No Other Cardiovascular: No: Chest Pain, Palpitations, Orthopnea, Paroxysmal Noc. Dyspnea, Edema, Lt Headedness, Other Gastrointestinal: No: Nausea, Vomiting, Abdominal Pain, Diarrhea, Constipation, Melena, Hematochezia, Other Genitourinary: No Dysuria, No Frequency, No Incontinence, No Hematuria, No Retention, No Other Musculoskeletal: No: other, neck pain, shoulder pain, arm pain, back pain, hand pain, leg pain, foot pain Skin: No Urticaria, No Rash, No Other Neurological: No: Weakness, Numbness, Incoordination, Change in speech, Co nfusion, Seizures, Other Objective Vitals and I/O Vital Sign (Last 24 Hours) 09/03/24 09/04/24 18:00 08:00 Temp 98.6 Pulse 69 Resp 16 B/P (MAP) 89/52 Pulse Ox 98 O2 Delivery Room Air O2 Flow Rate 0.0 FiO2 21 Intake & Output (last 24hrs) 09/03/24 09/03/24 09/04/24 15:00 23:00 07:00 Intake Total 25.0 ml Output Total 0 ml Balance 25.0 ml General: Alert, Oriented X3, Cooperative, No acute distress HEENT: Atraumatic, PERRLA, EOMI Neck: Supple, No JVD, No thyromegaly Lungs: Clear to auscultation, Normal air movement Heart: Regular rate, Regular rhythm, Normal S1, Normal S2 Abdomen: Normal bowel sounds, Soft, No tenderness Extremities: No clubbing, No cyanosis, No edema Skin: No rashes, No breakdown Neuro: Normal speech, Strength at 5/5 X4 ext, Normal tone, Sensation intact Psych/Mental Status: Mental status NL, Mood NL, Thoughts/Content NL Results RADIOLOGY: [] EKG: [] Laboratory Tests Test 09/03/24 16:19 09/03/24 19:39 09/04/24 04:50 09/04/24 05:10 Whole Blood Glucose 115 MG/DL (70-110) H White Blood Count 16.3 K/uL (4.8-10.8) H 12.5 K/uL (4.8-10.8) H Red Blood Count 3.71 MIL/uL (4.00-5.50) L 3.33 MIL/uL (4.00-5.50) L Hemoglobin 10.7 g/dL (12.0-16.0) L 9.8 g/dL (12.0-16.0) L Hematocrit 33.0 % (36-48) L 29.3 % (36-48) L Mean Corpuscular Volume 88.9 fL (79-99) 88.0 fL (79-99) Mean Corpuscular Hemoglobin 28.8 pg (27.0-33.0) 29.4 pg (27.0-33.0) Mean Corpuscular Hemoglobin Concent 32.4 g/dL (32.0-36.0) 33.4 g/dL (32.0-36.0) Red Cell Distribution Width 14.8 % (11.0-15.5) 14.9 % (11.0-15.5) Platelet Count 206 K/uL (130-400) 191 K/uL (130-400) Mean Platelet Volume 11.4 fL (7.5-10.5) H 12.2 fL (7.5-10.5) H Immature Granulocyte % (Auto) 0.2 % (0-1) 0.4 % (0-1) Neutrophils (%) (Auto) 76.2 % (40.0-77.0) 57.6 % (40.0-77.0) Lymphocytes (%) (Auto) 20.0 % (21.0-51.0) L 34.2 % (21.0-51.0) Monocytes (%) (Auto) 3.4 % (3.0-13.0) 6.7 % (3.0-13.0) Eosinophils (%) (Auto) 0.0 % (0.0-8.0) 0.5 % (0.0-8.0) Basophils (%) (Auto) 0.2 % (0.0-5.0) 0.6 % (0.0-5.0) Neutrophils # (Auto) 12.4 K/uL (1.8-7.7) H 7.2 K/uL (1.8-7.7) Lymphocytes # (Auto) 3.3 K/uL (1.0-4.8) 4.3 K/uL (1.0-4.8) Monocytes # (Auto) 0.6 K/uL (0.1-1.0) 0.8 K/uL (0.1-1.0) Eosinophils # (Auto) 0.00 K/uL (0.00-0.70) 0.06 K/uL (0.00-0.70) Basophils # (Auto) 0.04 K/uL (0.00-0.20) 0.08 K/uL (0.00-0.20) Absolute Immature Granulocyte (auto 0.04 K/uL (0-1) 0.05 K/uL (0-1) Nucleated Red Blood Cells 0.0 % (0.0-0.19) 0.0 % (0.0-0.19) Sodium Level 137 mmol/L (136-145) 143 mmol/L (136-145) Potassium Level 4.2 mmol/L (3.5-5.1) 3.8 mmol/L (3.5-5.1) Chloride Level 106 mmol/L (101-111) 110 mmol/L (101-111) Carbon Dioxide Level 25 mmol/L (21-32) 26 mmol/L (21-32) Blood Urea Nitrogen 9 mg/dL (7-18) 10 mg/dL (7-18) Creatinine 0.9 mg/dL (0.5-1.0) 0.6 mg/dL (0.5-1.0) Glomerular Filtration Rate Calc 73 mL/min (>90) 102 mL/min (>90) Random Glucose 248 mg/dL (70-105) H 84 mg/dL (70-105) # Total Calcium 8.2 mg/dL (8.5-10.1) L 7.7 mg/dL (8.5-10.1) L Magnesium Level 1.80 mg/dL (1.80-2.40) Total Bilirubin 0.5 mg/dL (0.2-1.0) Aspartate Amino Transf (AST/SGOT) 14 U/L (10-37) Alanine Aminotransferase (ALT/SGPT) 17 U/L (12-78) Alkaline Phosphatase 93 U/L (50-136) Total Creatine Kinase 88 U/L (21-232) Troponin I High Sensitivity 5.6 ng/L (4-50) B-Type Natriuretic Peptide 35 pg/mL (0-100) Total Protein 6.0 g/dL (6.0-8.3) Albumin 3.0 g/dL (3.5-5.0) L Urine Color LIGHT-YELLOW (YELLOW) Urine Appearance CLEAR (CLEAR) Urine pH 5.5 (5.0-8.0) Urine Specific [place] 1.020 (1.001-1.031) Urine Protein NEGATIVE mg/dL (NEGATIVE) Urine Glucose (UA) TRACE mg/dL (NEGATIVE) H Urine Ketones 5 mg/dL (NEGATIVE) H Urine Occult Blood NEGATIVE (NEGATIVE) Urine Nitrate NEGATIVE (NEGATIVE) Urine Bilirubin NEGATIVE mg/dL (NEGATIVE) Urine Urobilinogen 0.2 mg/dL (0.2-1.0) Urine Leukocyte Esterase 250 [place]/uL (NEGATIVE) H Urine RBC 2-5 /HPF (0-1) H Urine WBC 11-25 /HPF (0-1) H Urine Squamous Epithelial Cells Rare /HPF (0-2) Urine Bacteria None Seen /HPF (None Seen) Medications Current Medications Cefazolin Sodium 2 gm STK-MED ONCE .ROUTE; Start 09/03/24 at 06:22; Stop 09/03/24 at 06:22; Status DC Lactated Ringer's 1,000 ml @ As Directed STK-MED ONCE IV Last administered on 09/03/24at 06:51; Start 09/03/24 at 06:23; Stop 09/03/24 at 06:23; Status DC Acetaminophen 100 ml @ As Directed STK-MED ONCE .ROUTE; Start 09/03/24 at 06:41; Stop 09/03/24 at 06:41; Status DC Famotidine 20 mg STK-MED ONCE IV; Start 09/03/24 at 06:41; Stop 09/03/24 at 06:41; Status DC Ropivacaine 150 mg STK-MED ONCE .ROUTE; Start 09/03/24 at 06:43; Stop 09/03/24 at 06:43; Status DC Ketamine HCl 50 mg STK-MED ONCE .ROUTE; Start 09/03/24 at 06:43; Stop 09/03/24 at 06:43; Status DC Lidocaine HCl 100 mg STK-MED ONCE .ROUTE; Start 09/03/24 at 06:44; Stop 09/03/24 at 06:44; Status DC Propofol 200 mg STK-MED ONCE IV; Start 09/03/24 at 06:44; Stop 09/03/24 at 06:45; Status DC Rocuronium [place] 50 mg STK-MED ONCE .ROUTE; Start 09/03/24 at 06:44; Stop 09/03/24 at 06:45; Status DC Fentanyl Citrate 100 mcg STK-MED ONCE .ROUTE; Start 09/03/24 at 06:45; Stop 09/03/24 at 06:45; Status DC Epinephrine HCl 1 mg STK-MED ONCE .ROUTE; Start 09/03/24 at 07:02; Stop 09/03/24 at 07:03; Status DC Ondansetron HCl 4 mg STK-MED ONCE .ROUTE; Start 09/03/24 at 07:41; Stop 09/03/24 at 07:42; Status DC Dexamethasone Sodium Phosphate 10 mg STK-MED ONCE .ROUTE; Start 09/03/24 at 07:41; Stop 09/03/24 at 07:42; Status DC Glycopyrrolate 1 mg STK-MED ONCE .ROUTE; Start 09/03/24 at 07:58; Stop 09/03/24 at 07:58; Status DC Neostigmine Methylsulfate 10 mg STK-MED ONCE IV; Start 09/03/24 at 07:58; Stop 09/03/24 at 07:58; Status DC Cefazolin Sodium 2 gm STK-MED ONCE IVPB Last administered on 09/03/24at 07:50; Start 09/03/24 at 07:50; Stop 09/03/24 at 08:48; Status DC Meperidine HCl 50 mg STK-MED ONCE .ROUTE Last administered on 09/03/24at 10:43; Start 09/03/24 at 10:38; Stop 09/03/24 at 10:38; Status DC Ondansetron HCl 4 mg ONCE ONCE IVP Last administered on 09/03/24at 11:44; Start 09/03/24 at 11:30; Stop 09/03/24 at 11:36; Status DC Ondansetron HCl 4 mg ONCE ONCE PO; Start 09/03/24 at 15:00; Stop 09/03/24 at 15:01; Status DC Ondansetron HCl 4 mg ONCE ONCE SL Last administered on 09/03/24at 15:32; Start 09/03/24 at 15:30; Stop 09/03/24 at 15:31; Status DC Sodium Chloride 1,000 ml @ 100 mls/hr Q10H IV; Start 09/03/24 at 16:30; Stop 09/03/24 at 21:32; Status DC Polyethylene Glycol 17 gm DAILY PO; Start 09/04/24 at 09:00; Stop 10/04/24 at 08:59 Bisacodyl 10 mg DAILY PRN RC; Start 09/06/24 at 16:30; Stop 10/06/24 at 16:29 Aspirin 325 mg BID PO; Start 09/04/24 at 09:00; Stop 10/04/24 at 08:59 Ketorolac Tromethamine 15 mg Q6H PRN IV; Start 09/03/24 at 16:30; Stop 09/03/24 at 18:25; Status DC Multivitamins/Iron 1 tab DAILY PRN PO; Start 09/03/24 at 16:30; Stop 10/03/24 at 16:29 Ondansetron HCl 4 mg Q6H PRN IVP; Start 09/03/24 at 16:30; Stop 10/03/24 at 16:29 Calcium Carbonate 500 mg Q12H PRN PO; Start 09/03/24 at 16:30; Stop 10/03/24 at 16:29 Diphenhydramine HCl 25 mg Q6H PRN IVP; Start 09/03/24 at 16:30; Stop 10/03/24 at 16:29 Cefazolin Sodium 2 gm Q8H IVPB Last administered on 09/04/24at 07:20; Start 09/03/24 at 21:30; Stop 09/04/24 at 05:32; Status DC Cyclobenzaprine HCl 5 mg Q8H PRN PO; Start 09/03/24 at 16:30; Stop 10/03/24 at 16:29 Docusate Sodium 100 mg BID PO Last administered on 09/03/24at 23:05; Start 09/03/24 at 21:00; Stop 10/03/24 at 20:59 Ketorolac Tromethamine 15 mg Q8H IV Last administered on 09/04/24at 00:29; Start 09/03/24 at 16:30; Stop 09/04/24 at 08:31; Status DC Potassium Chloride 100 ml @ 100 mls/hr AD PRN IV; Start 09/03/24 at 16:30; S top 10/03/24 at 16:29 Potassium Chloride 20 meq AD PRN PO; Start 09/03/24 at 16:30; Stop 10/03/24 at 16:29 Potassium Chloride 20 meq AD PRN PO; Start 09/03/24 at 16:30; Stop 10/03/24 at 16:29 Acetaminophen/ Hydrocodone Bitart Q4H PRN PO; Start 09/03/24 at 16:30; Stop 09/03/24 at 16:28; Status DC Acetaminophen/ Hydrocodone Bitart 1 tab Q4H PRN PO; Start 09/03/24 at 16:30; Stop 09/08/24 at 16:29 Acetaminophen/ Hydrocodone Bitart 2 tab Q4H PRN PO; Start 09/03/24 at 16:30; Stop 09/08/24 at 16:29 Ketorolac Tromethamine 15 mg Q6H PRN IV; Start 09/04/24 at 18:30; Stop 09/08/24 at 18:29 Sodium Chloride 1,000 ml @ 75 mls/hr [id number] IV; Start 09/03/24 at 22:00; Stop 09/04/24 at 22:00 Pantoprazole Sodium 40 mg DAILY PO; Start 09/04/24 at 09:00; Stop 10/04/24 at 08:59 Cefazolin Sodium 2 gm Q8H IVPB; Start 09/04/24 at 07:30; Stop 09/04/24 at 07:31; Status DC Assessment/Plan ASSESSMENT: THIS IS A 59 YR OLD WOMAN WITH HISTORY OF BMI 31 ON [place] [address] NANCE H/O TOTAL HYSTERECTOMY H/O GASTRIC BYPASS - 1999 S/P CHOLECYSTECTOMY HX LUMBAR MASS - S/P BACK SX REPLACE L4 & L5 2010 ANEMIA 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 AND OK WITH ORTHO AND NO RECURRENT SYMPTOMS OR HYPOTENSION AGREE WITH DISCHARGE AND WILL FOLLOW UP ON FRIDAY OUTPATIENT ZAKIYA GUERRA MD Sep 04, 2024 08:38
[2024-09-04] MEDS: FAMOTIDINE 20MG VIAL IV ONE (08:42)
[2024-09-04] MEDS: acetaMINOPHEN 100 ML ONE (08:42)
[2024-09-04] MEDS: PANTOPrazole 40 MG TAB DR PO SCH (08:45)
[2024-09-04] MEDS: ASPIRIN 325MG TAB PO SCH (08:46)
[2024-09-04] MEDS: polyETHYLene GLYCol 3350 17 GM POWD.PACK PO SCH (08:46)
[2024-09-04] MEDS ORDERED: miDODRine HCL 5 MG TABLET PO PRN (09:00)
[2024-09-04] MEDS: cefTRIAXone 1G VIAL IVPB SCH (10:35)
[2024-09-04 12:00] VITALS: BP 100/69; PULSE 71; RESP 17; TEMP 98.1
[2024-09-04] MEDS ORDERED: CEPH500C2 PO (12:24)
[2024-09-04] MEDS ORDERED: acetaMINOPHEN 325 MG TAB PO PRN (12:30)
--- NOTE | 2024-09-04 15:05 | NUR ---
DCP/INITIAL ASSESSMENT Patient lives with spouse, Lester Kumar. He has no home services or DME. Patient is able to complete ADLs independently and drives. PCP is Maggie Han. Pharmacy [facility] in [place]. Patient has no issues with having stable intermediate to live in or transportation. She and spouse have lived in their home for some time. No concerns voiced regarding not having enough food in the home. No safety concerns voiced regarding returning home. DCP is home. Addendum: 09/04/24 at 1511 by CÉSAR FERNANDEZ SS Amended: Links added.
--- NOTE | 2024-09-04 16:30 | NUR ---
PATIENT DISCHARGED HOME ID BAND,IV AND TELE DARLENE REMOVED. DISCHARGE INSTRUCTIONS EXPLAINED AND GIVEN TO PATIENT. PATIENT VERBALIZED UNDERSTANDING. BELONGINGS PACKED AND TAKEN BY PATIENT. WHEELED DOWN TO PRIVATE CAR.
[2024-09-04] MEDS ORDERED: ketOROlac 15MG/ML VIAL (15MG/ML) IV PRN (18:30)
[2024-09-06] MEDS ORDERED: BisaCODYL 10 MG SUPP.RECT RC PRN (16:30)
== END 2024-09-04 16:30 | disposition home or self-care (01) ==
LOC: DAH 06:03 → DAHIP 06:04 → DAH 06:04 → 4BH 18:19
PROVIDERS: ADMIT Student in an Organized Health Care Education/Training Program; ATTEND Student in an Organized Health Care Education/Training Program
DX: M24.112 Other articular cartilage disorders, left shoulder (principal); M62.81 Muscle weakness (generalized); M25.512 Pain in left shoulder; G89.18 Other acute postprocedural pain; E78.5 Hyperlipidemia, unspecified; F32.A Depression, unspecified; K76.0 Fatty (change of) liver, not elsewhere classified; I95.1 Orthostatic hypotension; M25.312 Other instability, left shoulder; I31.39 Other pericardial effusion (noninflammatory); G47.00 Insomnia, unspecified; E61.1 Iron deficiency; Z90.49 Acquired absence of other specified parts of digestive tract; Z87.11 Personal history of peptic ulcer disease; Z98.84 Bariatric surgery status; Z79.899 Other long term (current) drug therapy; Z86.2 Personal history of diseases of the blood and blood-forming organs and certain disorders involving the immune mechanism; Z90.710 Acquired absence of both cervix and uterus
CPT/HCPCS: 80048 ×2; 85025 ×3; 85610; 85730; 36415 ×3; 64415; 29806; 96365; 96375 ×2; 82550; 83735; 84484; 80053; 83880; 82948; 71045; 70450; 93005; 96376; 96366; 87086; 81001; 97161; 97116 ×3; 97530; G0378 ×22; A4663; J7030; J7120; J3490 ×4; J3010; J1100; J2003; J0171; J2704; J2405 ×2; J2710; J2175; J2795; J1885 ×3; J0690 ×4; A6223; C1713; A5120; A4215; A4223 ×2; A4222; A4221; A4600; J0696

== ENCOUNTER → 2025-04-12 | Outpatient (CLI) | payer OTHER ==
[~2025-04-12] MED LIST changes: +CEPH500C2 PO; +CYCL5TAB3 PO; -ERGO500093 PO; -SEMA0.258 SQ; -VITAMIN B12 IM
--- NOTE | 2025-04-13 09:31 | HMCIMG ---
EXAMINATION: COMPLETE TRANSABDOMINAL ULTRASOUND OF PELVIS. CLINICAL HISTORY: Abdomen and pelvic pain. COMPARISON: CT abdomen and pelvis without contrast dated 04/21/2018. TECHNIQUE: Multiple real-time grayscale images of the pelvis were obtained. FINDINGS: The uterus and ovaries are not visualized, post hysterectomy and oophorectomy status. There is no free fluid in the pelvis. IMPRESSION: Post hysterectomy and bilateral oophorectomy status. No significant abnormality. No significant interval change. /[place]
--- NOTE | 2025-04-13 09:32 | HMCIMG ---
EXAMINATION: ULTRASOUND OF THE ABDOMEN WITH COLOR DOPPLER. CLINICAL HISTORY: Abdomen and pelvic pain. COMPARISON: Ultrasound of the abdomen limited dated 02/03/2023. TECHNIQUE: Real-time grayscale ultrasound images of the abdomen. In addition, color Doppler is medically necessary to perform in order to evaluate vascularity and blood flow. FINDINGS: Liver: Normal in caliber, the right hepatic lobe measures 14.5 cm in the craniocaudal dimension. There is increased echogenicity of the hepatic parenchyma. There is no focal hepatic abnormality or intrahepatic biliary ductal dilatation. There is normal spectral Doppler of the main portal vein (PSV is 23 cm/s). Gallbladder: Post cholecystectomy status. Common bile duct is dilated measuring 0.9 cm. Spleen is normal in caliber and measures 9.1 x 3.4 x 4.8 cm in craniocaudal, AP and transverse dimensions respectively. No focal lesions. Pancreas: Normal in caliber and echotexture. No calcification or dilated pancreatic duct. The kidneys are normal in caliber, the right kidney measures 9.5 x 4.5 x 4.4 cm and the left kidney measures 8.7 x 5.3 x 4.6 cm in craniocaudal, AP, and transverse dimensions respectively. There is normal renal cortical thickness, and cortical echogenicity. There is no renal calculus or hydronephrosis. There is a simple cortical cyst that measures 1.6 x 1.4 x 1.3 cm in the right renal mid pole. The proximal, mid, and distal aspects of abdominal aorta are normal in caliber measuring 1.8 cm, 1.7 cm, and 1.3 cm in the AP dimension respectively. Visualized aspects of the inferior vena cava are unremarkable and measures 2.1 cm. IMPRESSION: Hepatic steatosis. Post cholecystectomy status. Dilated common bile duct. Recommend MRCP. Right renal simple cortical cyst. Interval increase in diameter of common bile duct. /[place]
== END | disposition home or self-care (01) ==
LOC: RAH 08:56
PROVIDERS: ATTEND Internal Medicine
DX: K76.0 Fatty (change of) liver, not elsewhere classified (principal); K83.8 Other specified diseases of biliary tract; N28.1 Cyst of kidney, acquired; R10.2 Pelvic and perineal pain; R10.11 Right upper quadrant pain; R10.31 Right lower quadrant pain; R10.9 Unspecified abdominal pain; R63.4 Abnormal weight loss; Z90.49 Acquired absence of other specified parts of digestive tract; Z90.710 Acquired absence of both cervix and uterus
CPT/HCPCS: 76700; 76856

== ENCOUNTER → 2025-05-09 | Outpatient (CLI) | payer OTHER ==
--- NOTE | 2025-05-10 05:20 | HMCIMG ---
EXAM: CR Pelvis and Right Hip, 3 views. CLINICAL HISTORY: Pain. COMPARISON: None provided. FINDINGS: Radio-opaque implant is noted in lumbosacral spine. No acute fracture or aggressive appearing osseous lesion. Generalized osteopenia is seen. Joint spaces are within normal limits. The soft tissues are unremarkable. IMPRESSION: No acute osseous abnormality. Generalized osteopenia is seen. /[place]
--- NOTE | 2025-05-10 05:21 | HMCIMG ---
EXAM: CR Pelvis and Left Hip, 3 views. CLINICAL HISTORY: Pain. COMPARISON: None provided. FINDINGS: Radio-opaque implant is noted in lumbosacral spine. No acute fracture or aggressive appearing osseous lesion. Generalized osteopenia is seen. Joint spaces are within normal limits. The soft tissues are unremarkable. IMPRESSION: No acute osseous abnormality. Generalized osteopenia is seen. /[place]
== END | disposition home or self-care (01) ==
LOC: RAH 15:36
PROVIDERS: ATTEND Internal Medicine Gastroenterology
DX: M85.88 Other specified disorders of bone density and structure, other site (principal); M25.551 Pain in right hip; M25.552 Pain in left hip
CPT/HCPCS: 73502

== ENCOUNTER → 2025-06-24 | Outpatient (CLI) | payer OTHER ==
[~2025-06-24] MED LIST changes: +IOHEXOL-350 75 ML VIAL IV ONE
--- NOTE | 2025-06-25 02:06 | HMCIMG ---
EXAM: CT Abdomen and Pelvis with and without IV contrast CLINICAL HISTORY: Right lower quadrant pain TECHNIQUE: Axial computed tomography images of the abdomen and pelvis were obtained before and after intravenous contrast administration. Multiplanar reformatted coronal and sagittal images were reviewed. CONTRAST: With and without intravenous contrast. COMPARISON: Abdominal ultrasound dated 04/12/2025 showing hepatic steatosis, post-cholecystectomy status, right renal cortical cyst, and dilated common bile duct. FINDINGS: LUNG BASES: Visualized lung bases are clear. No pleural effusion or consolidation. LIVER: Liver is normal in size and contour with diffuse decreased attenuation consistent with mild hepatic steatosis. No focal hepatic lesion. Hepatic and portal veins are patent. GALLBLADDER AND BILE DUCTS: Gallbladder is surgically absent. Common bile duct measures up to 1.2 cm in maximal diameter, mildly increased compared with prior study. No intraductal calculus, mass, or periductal inflammatory changes. No intrahepatic biliary dilatation. PANCREAS: Normal size and enhancement without focal lesion or ductal dilatation. SPLEEN: Normal in size and enhancement. ADRENAL GLANDS: Normal morphology without nodules or masses. KIDNEYS, URETERS, AND BLADDER: Kidneys are normal in size and enhancement. No hydronephrosis or nephrolithiasis. A simple right renal cortical cyst measuring approximately 1.5 cm noted. Ureters and bladder appear unremarkable for degree of distension. 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 Circumferential mural thickening of the distal stomach and proximal duodenum (D1) up to 0.9 cm with mucosal enhancement, suggestive of gastritis/duodenitis, possibly biliary in nature. Cecum and ascending colon show mild mural thickening up to 0.7 cm with adjacent fat stranding, suggestive of mild inflammatory or reactive changes. Appendix not confidently visualized, likely surgically absent or obscured; no abscess or obstruction. PERITONEUM: No ascites or pneumoperitoneum. LYMPH NODES: No pathologic lymphadenopathy. REPRODUCTIVE ORGANS: Uterus surgically absent. No adnexal mass or cyst. VASCULATURE: Abdominal aorta and major branches are patent and normal in caliber. Portal and mesenteric veins are patent. ABDOMINAL WALL: Postsurgical mesh in supraumbilical region consistent with prior ventral hernia repair. No recurrence or collection. BONES: Posterior spinal fixation hardware at L4-L5 with solid bony fusion. No acute fracture or destructive lesion. IMPRESSION: * Mild diffuse hepatic steatosis, stable compared with prior ultrasound (04/12/2025). * Post-cholecystectomy status with persistent mild common bile duct dilatation measuring up to 1.2 cm, mildly increased since prior imaging. No intraductal calculus or obstructing lesion identified. 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 * Mild mural thickening of the cecum and ascending colon with surrounding fat stranding, consistent with mild inflammatory or reactive colitis. * Minor chronic postsurgical and incidental findings including simple right renal cortical cyst, status post ventral supraumbilical hernia mesh repair without recurrence, posterior spinal fusion at L4-L5 with bony ankylosis, and status post hysterectomy. * Comparison with prior ultrasound demonstrates mild interval increase in common bile duct diameter; correlation with liver function profile and clinical findings is advised for assessment of biliary dilatation significance. No new focal hepatic or obstructive lesion identified. /[place]
== END | disposition home or self-care (01) ==
LOC: RAH 08:59
PROVIDERS: ATTEND Internal Medicine Gastroenterology
DX: K76.0 Fatty (change of) liver, not elsewhere classified (principal); K83.8 Other specified diseases of biliary tract; N28.1 Cyst of kidney, acquired; R10.31 Right lower quadrant pain; Z90.49 Acquired absence of other specified parts of digestive tract; Z90.710 Acquired absence of both cervix and uterus
CPT/HCPCS: 74178; Q9967